=== PATIENT | female | born 1955 | race Caucasian/White ===

== ENCOUNTER → 2024-01-09 10:39 | Outpatient (REF) | payer MEDICARE, SELFPAY | LOC: RAD 10:39 | PROVIDERS: ATTENDING PHYSICIAN Internal Medicine | DX: M54.12 Radiculopathy, cervical region (principal) | CPT/HCPCS: 72040 ==

== ENCOUNTER 2024-02-28 22:33 | Emergency (ER) | payer MEDICARE, SELFPAY ==
[2024-02-28 22:38] VITALS: BP 124/80
[2024-02-28 23:11] VITALS: BMI 21.6
[2024-02-28 23:30] LABS: % Basophils 0.5 % (0-2); % Eosinophils 3.5 % (0-6); % Immature Granulocytes 0.1 % (0-0.5); % Lymphocytes 21.3 % (20.5-51.1); % Monocytes 6.8 % (1.7-9.3); % Neutrophils 67.8 % (42.2-75.2); Absolute Eosinophils 0.3 10^3/uL (0-0.7); Absolute Lymphocytes 1.7 10^3/uL (1.2-3.4); Absolute Monocytes 0.6 10^3/uL (0.1-0.6); Absolute Neutrophils 5.5 10^3/uL (1.4-6.5); Hemoglobin 13.6 g/dL (12.0-16.0); Mean Corp Hgb Conc. 34.9 g/dL (33.0-37.0); Mean Corpuscular Hgb 30.9 pg (27.0-31.0); Mean Corpuscular Volume 88.6 fL (81.0-99.0); Mean Platelet Volume 9.6 fL (7.4-10.4); Nucleated Red Blood Cells % 0 %; Platelet Count 184 10^3/uL (130-400); Red Cell Dist. Width 12.4 % (11.5-14.5); White Blood Cell Count 8.2 10^3/uL (4.8-10.8)
--- NOTE | 2024-02-28 23:31 | ED.GENMED ---
History of Present Illness
<FELECIA Odom - Last Filed: 02/29/24 01:59>
General
Chief Complaint: Abdominal Pain
Source: patient
Exam Limitations: none
Time Seen by Provider: 02/28/24 22:54
Nursing documentation reviewed up to this point in time: agreed with
Travel History
Have you had any contact with someone who has COVID-19?: No
Do you have any symptoms of coronavirus? Fever > 100 degrees, chills, cough, shortness of breath, sore throat, loss of taste or smell, muscle aches, or headache?: No
History of Present Illness
History of Present Illness:
This is a 68 year old female with no significant PMHx presents to the ER with right sided chest pain x1 day. She reports pain is located under her right breast and radiates to her back. Pain is worse with inspiration and laying down and relieved
with leaning forward. She admits having cold symptoms for 2 days that include excessive coughing and runny nose. She states her cough is dry and has been worsening. She has mild nausea. She also reports excessive belching throughout the day. She
denies abdominal pain, vomiting or diarrhea, chest pressure, SOB, or headache.
Past History
<FELECIA Odom - Last Filed: 02/29/24 01:59>
Past History
ED Past Medical History: None
ED Past Surgical History: None
Social History
Tobacco: Non-smoker
Living: with family
Review of Systems
<FELECIA Odom - Last Filed: 02/29/24 01:59>
Review of Systems
Allergies reviewed?: Yes
All Other Systems: Not applicable
Constitutional: Reports no symptoms
EENT: Reports no symptoms
Respiratory: Reports cough
Cardiac: Reports chest pain (Right sided chest pain)
ABD/GI: Reports nausea and other (Excessive belching)
: Reports no symptoms
Musculoskeletal: Reports back pain
Skin: Reports no symptoms
Neurological: Reports no symptoms
Endocrine: Reports no symptoms
Hematologic/Lymphatic: Reports no symptoms
Psychiatric: Reports no symptoms
Phy Exam
<FELECIA Odom - Last Filed: 02/29/24 01:59>
General Physical Exam
General Presentation: well appearing and no apparent distress
General Skin: warm and dry
General Habitus: normal
General Mental: alert
General Hydration: appears well hydrated
ENT Exam
ENT Exam: EOMI, pharynx normal, neck supple and normocephalic
Eye Exam
Eye Exam: PERRL, cornea clear and conjunctiva normal
Cardiovascular Exam
Cardiovascular Exam: regular rate/rhythm, no edema, no murmur and normal peripheral pulses
Pulmonary Exam
Pulmonary Exam: lungs clear, no respiratory distress, no rales, no crackles, no rhonchi, no stridor and no wheezing
Cough: non productive cough
Chest Wall: Right anterior: tenderness and Right posterior: tenderness
Gastrointestinal Exam
Gastrointestinal Exam: normal bowel sounds, non tender, soft, no organomegaly, no pulsatile mass and non distended
Neurological Exam
Neurological Exam: alert, oriented x3, no motor deficits and speech normal
Musculoskeletal Exam
Musculoskeletal Exam: full ROM and no edema
Skin Exam
Skin Exam: normal color, warm/dry, no rash and no petechia
Psychiatric Exam
Psychiatric Exam: normal mood/affect
Course
<ST IleneCT - Last Filed: 02/29/24 01:59>
Orders/Labs/Results
Orders:
Orders
02/28/24 22:55
US Abdomen Complete/Upper Urgent
Comment:
Reason For Exam: Right upper quadrant abdominal pain
02/28/24 23:24
Complete Blood Count/With Diff Urgent
Comprehensive Metabolic Panel Urgent
Lipase Urgent
Troponin I Urgent
Urinalysis Reflex To Culture Urgent
Date Specimen was Collected: 02/28/24
Time Specimen was Collected: 23:16
Urine Microscopic Reflex Cult Urgent
Urine Culture Urgent
REBEKAH Source: U
Specimen Description:
Date Specimen was Collected: 02/28/24
Time Specimen was Collected: 23:16
02/28/24 23:27
ECG [Electrocardiogram (*1)] Urgent
Reason for Study: Chest Pain
Other Reason for Exam: abd pain
02/28/24 23:28
EKG- Treatment ONCE
02/28/24 23:44
COVID-19 Antigen Urgent
Source: Nasal Swab
INF RAPID [Influenza A+B Rapid Molecular] Urgent
REBEKAH Source: Nasal Swab
Specimen Description:
02/29/24 00:01
CR Chest - 2 Views Urgent
Reason For Exam: cough, right back pain
02/29/24 01:11
Ondansetron Injectable [Zofran] 4 mg .ROUTE .ST-MED ONE
02/29/24 01:12
Ondansetron Injectable [Zofran] 4 mg IV NOW STA
02/29/24 01:19
CT Chest Pe Study Urgent
Comment:
Reason For Exam: right chest pain with inspiration
Abnormal Lab Results
02/28/24
23:24
Sodium 132 L mmol/L
(135-145)
BUN 18 H mg/dl
(7-17)
Glucose 118 H mg/dl
(70-99)
Ur Occult Blood Reflex 1+ A
(Negative)
Leukocyte Esterase Rfl 2+ A
(Negative)
Urine RBC 7-10 A /HPF
(0-2)
Urine Bacteria (Reflex) Many A
(Negative)
02/28/24 23:24
02/28/24 23:24
Vital Signs
Initial and Last Documented VS:
Initial Vital Signs
Temp Pulse Resp BP Pulse Ox
98.3 F 74 18 124/80 100
02/28/24 22:38 02/28/24 22:38 02/28/24 22:38 02/28/24 22:38 02/28/24 22:38
Last Documented Vital Signs
Temp Pulse Resp BP Pulse Ox
99.4 F 71 16 122/68 98
02/29/24 00:51 02/29/24 02:04 02/29/24 02:04 02/29/24 02:04 02/29/24 02:04
<Martin Negron, DO - Last Filed: 02/29/24 03:41>
Orders/Labs/Results
Orders:
Orders
02/28/24 22:55
US Abdomen Complete/Upper Urgent
Comment:
Reason For Exam: Right upper quadrant abdominal pain
02/28/24 23:24
Complete Blood Count/With Diff Urgent
Comprehensive Metabolic Panel Urgent
Lipase Urgent
Troponin I Urgent
Urinalysis Reflex To Culture Urgent
Date Specimen was Collected: 02/28/24
Time Specimen was Collected: 23:16
Urine Microscopic Reflex Cult Urgent
Urine Culture Urgent
REBEKAH Source: U
Specimen Description:
Date Specimen was Collected: 02/28/24
Time Specimen was Collected: 23:16
02/28/24 23:27
ECG [Electrocardiogram (*1)] Urgent
Reason for Study: Chest Pain
Other Reason for Exam: abd pain
02/28/24 23:28
EKG- Treatment ONCE
02/28/24 23:44
COVID-19 Antigen Urgent
Source: Nasal Swab
INF RAPID [Influenza A+B Rapid Molecular] Urgent
REBEKAH Source: Nasal Swab
Specimen Description:
02/29/24 00:01
CR Chest - 2 Views Urgent
Reason For Exam: cough, right back pain
02/29/24 01:11
Ondansetron Injectable [Zofran] 4 mg .ROUTE .STK-MED ONE
02/29/24 01:12
Ondansetron Injectable [Zofran] 4 mg IV NOW STA
02/29/24 01:19
CT Chest Pe Study Urgent
Comment:
Reason For Exam: right chest pain with inspiration
Abnormal Lab Results
02/28/24
23:24
Sodium 132 L mmol/L
(135-145)
BUN 18 H mg/dl
(7-17)
Glucose 118 H mg/dl
(70-99)
Ur Occult Blood Reflex 1+ A
(Negative)
Leukocyte Esterase Rfl 2+ A
(Negative)
Urine RBC 7-10 A /HPF
(0-2)
Urine Bacteria (Reflex) Many A
(Negative)
02/28/24 23:24
02/28/24 23:24
Vital Signs
Initial and Last Documented VS:
Initial Vital Signs
Temp Pulse Resp BP Pulse Ox
98.3 F 74 18 124/80 100
02/28/24 22:38 02/28/24 22:38 02/28/24 22:38 02/28/24 22:38 02/28/24 22:38
Last Documented Vital Signs
Temp Pulse Resp BP Pulse Ox
99.4 F 71 16 122/68 98
02/29/24 00:51 02/29/24 02:04 02/29/24 02:04 02/29/24 02:04 02/29/24 02:04
<FELECIA Odom - Last Filed: 02/29/24 01:59>
MDM/Problems Addressed
Differential Diagnosis Includes:
Pericarditis, pneumothorax, pleuritis, pneumonia, PE, COVID19
Pericarditis considered due to pleuritic chest pain with inspiration relieved by leaning forwards, however normal ECG. PE considered but is not tachycardiac on vitals and not not hormonal control. PNA considered but she does not have rales or
rhonchi on exam. She also denies any fevers. Pneumothorax and pleuritis considered with recent excessive coughing that may have injured her right lung or lining of the lungs. COVID19 considered but covid test negative.
<Martin Negron DO - Last Filed: 02/29/24 03:41>
*Critical Care Note
Total Time (30-74mins, 75-104mins- exclusive of procedures): Not Applicable
<Martin Negron DO - Last Filed: 02/29/24 03:41>
Update Note
Update Note:
02/29/2024 0159 AM: Patient seen by crisis. She denies suicidal or homicidal ideation, intent, or plan. [employer] is try to get her housing. P is providing food stamps. Patient has an action plan to get a job. She does have food. She is due to have a
therapy appointment scheduled for tomorrow morning at 10 AM.
ED Attending Note
<FELECIA Odom - Last Filed: 02/29/24 01:59>
-
Portions of this chart may have been created with voice recognition software.� Occasional wrong word or��sound alike� substitutions may have occurred due to the inherent limitations of voice recognition software.
<Martin Negron DO - Last Filed: 02/29/24 03:41>
ED Attending Note
Patient seen and examined by attending physician: Yes
ED Attending Note:
Pleasant 68-year-old female reports presents with right-sided chest wall pain. She states that it is reproducible. It has been going on for a couple days. Patient states that she has been under a lot of stress. She was laid off from her job
recently and living in a hotel. Her morning is running out. She is connected with [facility] and has applied for and received food stamps and Medicare. Patient was seen in conjunction with the PA student. I have reviewed and agree with
the history and treatment plan presented. On my independent physical exam, patient is awake, alert, and oriented x3, minimal acute distress. Lungs are clear to auscultation bilaterally no wheezes rales or rhonchi. Abdomen soft nontender.
Negative Eduardo sign.
Vital signs are stable. Patient not hypoxic
Nursing note reviewed. I agree with nursing documentation up to this point in time.
Home Meds and allergies reviewed.
NUMBER AND COMPLEXITY OF PROBLEMS ADDRESSED AT THE ENCOUNTER
� Chronic conditions affecting care:
� Acute Exacerbation and/or Progression of Chronic Illness:
� Differential Diagnosis includes:
AMOUNT AND/OR COMPLEXITY OF DATA TO BE REVIEWED AND ANALYZED
I performed an independent evaluation of the following and my interpretation is:
EKG: Normal sinus rhythm rate of 62 with normal intervals, normal axis. No evidence of acute ischemia present. No change from previous EKG dated January 04, 1995.
CT:
CTA CHEST
IMPRESSION:
1. Adequate technical study. No acute pulmonary embolism.
2. No thoracic aortic aneurysm or acute aortic dissection. Bibasilar atelectasis
Incidentals:
- No acute osseous abnormality.
- No acute abnormality within the visualized abdomen.
- No thoracic lymphadenopathy or suspicious lymph nodes.
Case finalized on Feb 29 2024 2:41AM ET
X-rays:
Ultrasound:US ABD
IMPRESSION:
No sonographic evidence of cholelithiasis or acute cholecystitis.
Common bile duct measures 3 mm.
Unremarkable sonographic appearance of the liver, bilateral kidneys, spleen, and visualized pancreas.
Laboratory Studies:
Other:
Review of other/old records:
Clinical information was obtained by an independent historian:
Prescriptions/Medications Considered but not given:
Further testing considered but not performed:
RISK OF COMPLICATIONS AND/OR MORBIDITY OR MORTALITY OF PATIENT MANAGEMENT
Social determinants of health affecting care: Good Social Support
Discussion with other providers:
Escalation of care including admission/observation vs risk of discharge considered:
CRITICAL CARE NOTE:na
Total Time (exclusive of procedures):
Update:
Discharge Plan
Departure
Patient Disposition: Home (Routine Discharge)
Date of Disposition: 02/29/24
Time of Disposition: 03:39
Patient with high blood pressure during this ER visit?: Yes
Discharge Problem:
Abdominal pain, Acute chest wall pain
Instructions: Chest Pain, Abdominal Pain, BLOOD PRESSURE
Prescriptions:
No Action
No Current Medications
0
Referrals:
Skip Granados [Active] -
Chapin Bates MD [Family Provider] -
Activity Restrictions/Additional Instructions:
Please keep your appointment with your therapist for tomorrow
It was a pleasure meeting you and taking part in your care. We hope for your continued healing and wellness.
Please read discharge instructions in their entirety. However, they are for general education and may not describe your exact diagnosis at discharge. Information on your ER visit and medical conditions were discussed with you along with appropriate
follow up information...
If indicated, please take your medications as instructed and indicated on discharge paperwork.
Please schedule a follow up appointment as directed. Call to schedule an appointment
Please return to the emergency department with ANY change in, persisting, or worsening of symptoms. If any of your symptoms do not improve, or persist, or become more severe within 6-12 hours, please return to the emergency department for further
care.
Please return to the emergency department if you develop a headache, neck pain/stiffness, fever greater than 100.4F, chest pain, shortness of breath, persistent nausea, vomiting, slurred speech, difficulty walking, numbness/tingling, weakness, signs
of infection or any other symptoms that are worrisome to you.
If you have any questions or concerns please do not hesitate to call the Hospital at or E-mail me directly at [email or web address]
Interventions
Interventions:
*Risk Screen - Suicide Last Done: 02/28/24 22:38
*General Assessment Last Done: 02/28/24 23:12
*Neglect/Abuse Screening Last Done: 02/28/24 22:38
ED- Fall Risk Assessment Last Done: 02/28/24 23:12
*ED COVID-19 Vaccine History Last Done: 02/28/24 23:11
PT-Xsxcli-Rxfoawgjst Assessment Last Done: 02/28/24 23:12
ED-Psychological Assessment Last Done: 02/28/24 23:28
ED- Pulmonary Assessment Last Done: 02/28/24 23:12
Discharge Date and Time
Print Language: ALBANIAN
[2024-02-28 23:32] LABS: Urine Albumin Negative (Neg - Trace); Urine Bilirubin Negative (Negative); Urine Character Slightly Cloudy (Clear); Urine Color Yellow; Urine Glucose Negative (Negative); Urine Ketone Negative (Negative); Urine Leukocyte 2+ (Negative); Urine Nitrite Negative (Negative); Urine Occult Blood 1+ (Negative); Urine Specific Gravity 1.015 (<1.030); Urine Urobilinogen Negative (Neg - 1+)
[2024-02-28 23:41] VITALS: BP 131/83
[2024-02-28 23:50] LABS: ALT (SGPT) 20 U/L (0-35); AST (SGOT) 29 U/L (14-36); Albumin 4.6 g/dl (3.5-5.0); Alkaline Phosphatase 72 U/L (38-126); Blood Urea Nitrogen 18 mg/dl (7-17); Calcium 9.3 mg/dl (8.4-10.2); Carbon Dioxide 29 mmol/L (22-30); Chloride 100 mmol/L (98-107); Estimated Creatinine Clearance 62 ml/min; Glucose 118 mg/dl (70-99); Lipase 114 U/L (23-300); Potassium 3.7 mmol/L (3.5-5.1); Sodium 132 mmol/L (135-145); Total Bilirubin 0.7 mg/dl (0.2-1.3); Total Protein 7.4 g/dl (6.3-8.2); eGFR > 60.00
[2024-02-29 00:03] LABS: Troponin I < 0.012 ng/ml
[2024-02-29 00:10] LABS: COVID-19 Antigen Negative (Negative)
[2024-02-29 00:45] LABS: Urine Amorphous Seen; Urine Bacteria Many (Negative); Urine Mucus Many; Urine Squamous Cell >30 /LPF (Few)
[2024-02-29 00:51] VITALS: BP 107/77
[2024-02-29] MEDS: ZOFRAN 4 MG IV (01:13)
[2024-02-29 02:04] VITALS: BP 122/68
[2024-02-29 04:16] VITALS: BP 129/92
== END 2024-02-29 04:19 | disposition home or self-care (01) ==
LOC: EMR 22:33
PROVIDERS: EMERGENCY PHYSICIAN Student in an Organized Health Care Education/Training Program; FAMILY PHYSICIAN Internal Medicine
DX: R07.89 Other chest pain (principal); R10.11 Right upper quadrant pain; R03.0 Elevated blood-pressure reading, without diagnosis of hypertension; Z59.01 Sheltered homelessness
CPT/HCPCS: 99285; 96374; 71046; 71275; 76700; 80053; 81003; 81015; 83690; 84484; 85025; 87086; 87502; 87811; 93005; Q9967

== ENCOUNTER → 2024-05-01 10:45 | Outpatient (REF) | payer OTHER, SELFPAY ==
[2024-05-03 13:30] LABS: Quantiferon Mitogen minus NIL 9.93 IU/mL; Quantiferon NIL 0.07 IU/mL; Quantiferon Plus TB1 minus NIL 0.04 IU/mL (<=0.34); Quantiferon Plus TB2 minus NIL 0.03 IU/mL (<=0.34); Quantiferon TB Gold Plus Negative (Negative)
== END ==
LOC: OHS 10:45
PROVIDERS: ATTENDING PHYSICIAN Nurse Practitioner Family
DX: Z23 Encounter for immunization (principal)
CPT/HCPCS: 36415; 86480

== ENCOUNTER → 2024-07-31 18:15 | Outpatient (REF) | payer MEDICARE, SELFPAY | LOC: WDC 18:15 | PROVIDERS: ATTENDING PHYSICIAN Internal Medicine | DX: Z12.31 Encounter for screening mammogram for malignant neoplasm of breast (principal) | CPT/HCPCS: 77063; 77067 ==

== ENCOUNTER → 2024-11-23 12:51 | Outpatient (REF) | payer BC, SELFPAY | LOC: RAD 12:51 | PROVIDERS: ATTENDING PHYSICIAN Obstetrics & Gynecology; FAMILY PHYSICIAN Hospitalist | DX: Z78.0 Asymptomatic menopausal state (principal) | CPT/HCPCS: 77080 ==

== ENCOUNTER 2025-04-04 06:21 | Day surgery (SDC) | payer BC, SELFPAY | END 2025-04-04 15:10 | disposition home or self-care (01) | LOC: GI 06:21 | PROVIDERS: ATTENDING PHYSICIAN Internal Medicine Gastroenterology | DX: Z12.11 Encounter for screening for malignant neoplasm of colon (principal); R19.5 Other fecal abnormalities; K57.30 Diverticulosis of large intestine without perforation or abscess without bleeding; D12.3 Benign neoplasm of transverse colon | CPT/HCPCS: 45385; 88305 ==

== ENCOUNTER → 2025-06-18 17:16 | Outpatient (REF) | payer BC, SELFPAY ==
[2025-06-18 18:17] LABS: Vitamin D, 25-OH*** 33.2 ng/mL (30-80)
== END ==
LOC: REG 17:16
PROVIDERS: ATTENDING PHYSICIAN Internal Medicine; FAMILY PHYSICIAN Hospitalist
DX: E55.9 Vitamin D deficiency, unspecified (principal)
CPT/HCPCS: 36415; 82306

== ENCOUNTER → 2025-09-18 18:35 | Outpatient (REF) | payer BC, SELFPAY | LOC: WDC 18:35 | PROVIDERS: ATTENDING PHYSICIAN Internal Medicine | DX: Z12.31 Encounter for screening mammogram for malignant neoplasm of breast (principal) | CPT/HCPCS: 77063; 77067 ==